=== PATIENT | male | born 1975 | race African-American/Black ===

== ENCOUNTER 2021-07-15 21:47 | Emergency (ER) | payer OTHER ==
[2021-07-15 21:54] VITALS: BP 147/95; PULSE 60; TEMP 97.5; BMI 24.4
[2021-07-15] MEDS ORDERED: BACITRACIN 0.9 GM PACKET TP ONE (23:43)
[2021-07-15] MEDS ORDERED: DIPHTH,PERTUSS(ACELL),TET 0.5 ML DISP.SYRIN IM ONE ×2 (23:43→23:49)
[2021-07-15] MEDS ORDERED: CEPHALEXIN MONOHYDRATE 500 MG CAPSULE (UD) PO ONE (23:44)
[2021-07-15] MEDS ORDERED: BACITRACIN 0.9 GM PACKET ONE (23:48)
[2021-07-15] MEDS ORDERED: CEPHALEXIN MONOHYDRATE 500 MG CAPSULE (UD) ONE (23:49)
== END 2021-07-16 01:07 | disposition home or self-care (01) ==
LOC: JER 21:47 → JERFT 21:47 → JER 07-16 01:07
PROC: 3E0234Z Introduction of Serum, Toxoid and Vaccine into Muscle, Percutaneous Approach (ICD-10-PCS; principal; 2021-07-15)
DX: S80.812A Abrasion, left lower leg, initial encounter (principal); V13.4XXA Pedal cycle driver injured in collision with car, pick-up truck or van in traffic accident, initial encounter
CPT/HCPCS: 90715; 99284-25

== ENCOUNTER 2022-08-03 01:28 | Emergency (ER) | payer OTHER ==
[2022-08-03 01:52] VITALS: BP 145/94; PULSE 68; RESP 20; TEMP 98.4; BMI 23.7
[2022-08-03] MEDS ORDERED: IBUPROFEN 400 MG TABLET (FP) PO ONE (02:21)
== END 2022-08-03 05:03 | disposition home or self-care (01) ==
LOC: JER 01:28
DX: R51.9 Headache, unspecified (principal); M79.641 Pain in right hand; V18.0XXA Pedal cycle driver injured in noncollision transport accident in nontraffic accident, initial encounter
CPT/HCPCS: 70450-TC; 72125-TC; 73130-TC-RT-FY; 99284-25